=== PATIENT | male | born 1990 | race Caucasian/White ===

== ENCOUNTER 2023-10-22 22:35 | Emergency (ER) | payer SELFPAY ==
[2023-10-22 22:38] VITALS: BP 180/106
--- NOTE | 2023-10-22 23:10 | ED.GENMED ---
History of Present Illness
General
Chief Complaint: Abnormal Lab Value
Time Seen by Provider: 10/22/23 23:10
Travel History
Have you had any contact with someone who has COVID-19?: No
Do you have any symptoms of coronavirus? Fever > 100 degrees, chills, cough, shortness of breath, sore throat, loss of taste or smell, muscle aches, or headache?: No
History of Present Illness
History of Present Illness:
HPI: The patient states he had lab work drawn today through [facility] and was told it was elevated. He denies any significant symptoms. He had been on Depakote 500 mg twice daily this past April but then was switched to 1000 mg twice daily
which is what is currently taking. The outpatient Depakote level today was 157. He spoke to Dr. Judd recommended that he decreases the dose down to 750 mg twice daily. When he was on 500 mg twice daily he did have some outbursts and at 1000 mg
twice daily he feels somewhat fatigued. He tells me that he essentially came here for a 'second opinion'.
EXAM:
GENERAL: Well appearing in no distress
HEENT: Moist oral mucosa, no nystagmus
CARDIOVASCULAR: No murmurs, normal heart rate, regular rhythm, No chest wall tenderness
PULMONARY: No respiratory distress, breath sounds are clear and equal
ABDOMEN: Soft with no peritoneal signs, no tenderness
NEUROLOGIC: Excellent strength all extremities, no coordination deficits
PSYCHIATRIC: Appropriate mental status, reasonable insight and judgement
EXTREMITIES: Nontender, no edema, moves all extremities equally
SKIN: No rash, no lesions
TIME OF INITIAL ENCOUNTER: 11:15 PM
NUMBER AND COMPLEXITY OF PROBLEMS ADDRESSED AT THE ENCOUNTER
� Chronic conditions affecting care: Asperger's, bipolar, PTSD, high blood pressure, has had SVT
� Acute Exacerbation and/or Progression of Chronic Illness: This is an acute problem
� Differential Diagnosis includes: Depakote toxicity, supratherapeutic Depakote level
AMOUNT AND/OR COMPLEXITY OF DATA TO BE REVIEWED AND ANALYZED
� I performed an independent evaluation of and my interpretation is:
EKG:
CT:
X-rays:
Laboratory Studies: CBC normal, chemistries unremarkable, ammonia normal, Depakote level at 85.
Other:
� Review of other/old records: I reviewed records, the patient had a chest x-ray December of last year which was unremarkable.
� Clinical information was obtained by an independent historian: None needed
� Prescriptions/Medications Considered but not given:
� Further testing considered but not performed:
RISK OF COMPLICATIONS AND/OR MORBIDITY OR MORTALITY OF PATIENT MANAGEMENT
� Social determinants of health affecting care: Lives at home with his parents
� Discussion with other providers: None needed
� Escalation of care including admission/observation vs risk of discharge considered: Will recheck labs and reassess, currently, the patient does not have any significant symptoms but would likely decrease dosing recommendation
as outpatient. On reassessment at 1:20 AM, the patient is in no distress there is been no change in his clinical condition. We agreed to have patient start a total of 750 mg of Depakote twice daily. He states this was also the recommendation of
psychiatrist. He already has 500 mg strength�will give prescription for 250 mg strength.
Past History
Past History
ED Past Medical History: Arrthythmia, HTN, Psychiatric (ADHD, asked Buerger's, bipolar, PTSD) and Other (migraines, ADHD)
ED Past Surgical History: None
Social History
Tobacco: Non-smoker
Alcohol: Occasional
Drug: None
Personal: Other (Noncontributory)
Living: with family
Employment: Not employed
Family History
Family History: Other (Noncontributory)
Phy Exam
Physical Exam
Physical Exam:
See HPI
Course
Orders/Labs/Results
Orders:
Orders
10/22/23 23:11
0.9% Sodium Chloride 1000 ml [Nss] 1,000 ml IV BOLUS
10/22/23 23:46
Ammonia Urgent
Complete Blood Count/With Diff Urgent
Comprehensive Metabolic Panel Urgent
Valproic Acid Level [Depakane] Urgent
Abnormal Lab Results
10/22/23
23:46
Absolute Monos (auto) 0.9 H 10^3/uL
(0.1-0.6)
Monocytes % 12.0 H %
(1.7-9.3)
Glucose 109 H mg/dl
(70-99)
10/22/23 23:46
10/22/23 23:46
Vital Signs
Initial and Last Documented VS:
Initial Vital Signs
Pulse Resp BP Pulse Ox
96 20 180/106 99
10/22/23 22:38 10/22/23 22:38 10/22/23 22:38 10/22/23 22:38
Last Documented Vital Signs
Pulse Resp BP Pulse Ox
96 20 180/106 99
10/22/23 22:38 10/22/23 22:38 10/22/23 22:38 10/22/23 22:38
*Critical Care Note
Total Time (30-74mins, 75-104mins- exclusive of procedures): Not Applicable
ED Attending Note
-
Portions of this chart may have been created with voice recognition software.� Occasional wrong word or��sound alike� substitutions may have occurred due to the inherent limitations of voice recognition software.
Discharge Plan
Departure
Patient Disposition: Home (Routine Discharge)
Date of Disposition: 10/23/23
Time of Disposition: 01:23
Patient with high blood pressure during this ER visit?: Yes
Discharge Problem:
Serum sodium valproate above therapeutic range
Prescriptions:
New
divalproex [Depakote] 250 mg tablet,delayed release (DR/EC)
250 mg PO BID Qty: 60 0RF
No Action
Ziprasidone
60 mg PO HS
sertraline 50 MG tablet
50 mg PO HS
metoprolol tartrate 25 MG tablet
25 mg PO BID
Referrals:
Kwabena Palm MD [Family Provider] -
Activity Restrictions/Additional Instructions:
I agree with the other doctor that you should be on 750 mg of Depakote twice daily. Tomorrow morning start taking ONE of the 500 mg and ONE of the 250 mg and then in the evening take one of the 500 mg and one of the 250 mg. I am sending a
prescription for the 250 mg to your pharmacy. Follow-up with your psychiatrist. The Depakote level tonight is 84.6 (normal ranges 50-120). Other basic labs including ammonia level are normal.
Interventions
Interventions:
*Risk Screen - Suicide Last Done: 10/22/23 22:38
*General Assessment Last Done: 10/22/23 22:38
*Neglect/Abuse Screening Last Done: 10/22/23 22:38
*ED COVID-19 Vaccine History Last Done: 10/22/23 23:30
Discharge Date and Time
Print Language: SAMOAN
[2023-10-22] MEDS: NSS 1000 IV (23:49)
[2023-10-22 23:54] LABS: % Basophils 0.5 % (0-2); % Eosinophils 1.9 % (0-6); % Immature Granulocytes 0.3 % (0-0.5); % Lymphocytes 34.2 % (20.5-51.1); % Neutrophils 51.1 % (42.2-75.2); Absolute Eosinophils 0.1 10^3/uL (0-0.7); Absolute Lymphocytes 2.6 10^3/uL (1.2-3.4); Absolute Monocytes 0.9 10^3/uL (0.1-0.6); Absolute Neutrophils 3.8 10^3/uL (1.4-6.5); Hematocrit 43.4 % (39.0-52.0); Hemoglobin 15.2 g/dL (13.0-18.0); Mean Corpuscular Hgb 30.1 pg (27.0-31.0); Mean Corpuscular Volume 85.9 fL (80.0-94.0); Mean Platelet Volume 10.1 fL (7.4-10.4); Nucleated Red Blood Cells % 0 % (-); Platelet Count 180 10^3/uL (130-400); Red Blood Cell Count 5.05 10^6/uL (4.70-6.10); Red Cell Dist. Width 13.2 % (11.5-14.5); White Blood Cell Count 7.5 10^3/uL (4.8-10.8)
[2023-10-23 00:07] LABS: Ammonia 17 umol/L (9-30)
[2023-10-23 00:09] LABS: ALT (SGPT) 32 U/L (0-50); AST (SGOT) 23 U/L (17-59); Albumin 4.4 g/dl (3.5-5.0); Alkaline Phosphatase 71 U/L (38-126); Blood Urea Nitrogen 13 mg/dl (9-20); Calcium 9.9 mg/dl (8.4-10.2); Carbon Dioxide 25 mmol/L (22-30); Chloride 106 mmol/L (98-107); Glucose 109 mg/dl (70-99); Potassium 3.7 mmol/L (3.5-5.1); Sodium 140 mmol/L (135-145); Total Bilirubin 0.3 mg/dl (0.2-1.3); Total Protein 6.6 g/dl (6.3-8.2); eGFR > 60.00
[2023-10-23 00:12] LABS: Depakane 84.6 ug/ml (50.0-120.0)
== END 2023-10-23 01:37 | disposition home or self-care (01) ==
LOC: EMR 22:35
PROVIDERS: EMERGENCY PHYSICIAN Emergency Medicine; FAMILY PHYSICIAN Family Medicine
DX: R79.89 Other specified abnormal findings of blood chemistry (principal); R53.83 Other fatigue; F84.5 Asperger's syndrome; F31.9 Bipolar disorder, unspecified; I10 Essential (primary) hypertension; F43.10 Post-traumatic stress disorder, unspecified; F90.9 Attention-deficit hyperactivity disorder, unspecified type; G43.909 Migraine, unspecified, not intractable, without status migrainosus; Z88.8 Allergy status to other drugs, medicaments and biological substances; Z91.048 Other nonmedicinal substance allergy status
CPT/HCPCS: 99284; 96360; 80053; 80164; 82140; 85025

== ENCOUNTER 2023-12-12 19:12 | Emergency (ER) | payer BC, SELFPAY ==
[2023-12-12 19:17] VITALS: BP 173/107
--- NOTE | 2023-12-12 19:44 | EDRN ---
Pt then took a nap this afternoon and awoke with severe pain L shoulder and arm. Pt states that he can not move neck side to side and can not lift arm without pain. Slight swelling at site and no warmth or redness.
[2023-12-12 20:00] VITALS: BP 140/97
[2023-12-12] MEDS: TYLENOL 1000 MG PO (20:37)
[2023-12-12] MEDS: MOTRIN 800 MG PO (20:37)
[2023-12-12 20:38] VITALS: BMI 32.6
--- NOTE | 2023-12-12 22:24 | ED.GENMED ---
History of Present Illness
General
Chief Complaint: Musculo-Skeletal Complaint
Source: patient
Exam Limitations: none
Time Seen by Provider: 12/12/23 19:28
Nursing documentation reviewed up to this point in time: agreed with
History of Present Illness
History of Present Illness:
33-year-old male with past medical history of hypertension presenting to the emergency department today with concerns of discomfort to his left side of his neck made worse with movement seem to correlate with getting a tetanus shot yesterday.
Denies any chest pain shortness of breath or additional concerns.
Past History
Past History
ED Past Medical History: Arrthythmia, HTN, Psychiatric (ADHD, asked Buerger's, bipolar, PTSD) and Other (migraines, ADHD)
ED Past Surgical History: None
Social History
Tobacco: Non-smoker
Alcohol: Occasional
Drug: None
Personal: Other (Noncontributory)
Living: with family
Employment: Not employed
Family History
Family History: Other (Noncontributory)
Review of Systems
Review of Systems
Allergies reviewed?: Yes
All Other Systems: ROS reviewed and negative except as documented in HPI and ROS
Phy Exam
Physical Exam
Physical Exam:
GENERAL: Alert , in no apparent distress
EYE: pupils equal and reactive
NECK: Supple, no significant adenopathy.
ENT: o/p clr, mmm.
CARDIAC: Regular rate and rhythm .
LUNGS: Clear breath sounds bilaterally, no acute respiratory distress, no wheezes/rales/rhonchi
ABDOMEN: Soft, without focal tenderness, no r/g, no cvat
NEUROLOGICAL: Alert and oriented, no focal neuro deficits
SKIN: Warm and dry, skin intact.
MUSCULOSKELETAL: No overlying skin changes but does have some discomfort to the left lateral neck with rotation of the head. No visible changes. No edema, well perfused.
PSYCH: Normal and appropriate interaction.
Course
Orders/Labs/Results
Orders:
Orders
12/12/23 20:31
EKG [Electrocardiogram (*1)] Urgent
Reason for Study: Chest Pain
EKG- Treatment ONCE
Acetaminophen [Tylenol] 1,000 mg PO NOW STA
Ibuprofen [Motrin] 800 mg PO NOW STA
CR Shoulder, Trauma - Left Urgent
Comment:
Reason For Exam: shoulder pain
12/12/23 21:54
Diazepam [Valium] 5 mg PO NOW STA
Vital Signs
Initial and Last Documented VS:
Initial Vital Signs
Temp Pulse Resp BP Pulse Ox
98.1 F 109 20 173/107 96
12/12/23 19:17 12/12/23 19:17 12/12/23 19:17 12/12/23 19:17 12/12/23 19:17
Last Documented Vital Signs
Temp Pulse Resp BP Pulse Ox
98.1 F 80 16 124/84 97
12/12/23 19:17 12/12/23 22:40 12/12/23 22:40 12/12/23 22:40 12/12/23 22:40
MDM/Problems Addressed
MDM/Problems Addressed:
33-year-old male presenting to the emergency department today with concerns of left-sided neck discomfort. Pain made worse with movement no fevers no chest pain or shortness of breath. Did get a tetanus shot yesterday at the left arm. On arrival
mildly tachycardic but this improved without specific treatment heart rate normal throughout the remainder of ER stay EKG normal x-ray of the shoulder without acute abnormalities. Patient with likely muscle strain advised for muscle relaxer and
Motrin Tylenol at home. Return precautions given.
*Critical Care Note
Total Time (30-74mins, 75-104mins- exclusive of procedures): Not Applicable
ED Attending Note
-
Portions of this chart may have been created with voice recognition software.� Occasional wrong word or��sound alike� substitutions may have occurred due to the inherent limitations of voice recognition software.
Discharge Plan
Departure
Patient Disposition: Home (Routine Discharge)
Date of Disposition: 12/12/23
Time of Disposition: 22:29
Patient with high blood pressure during this ER visit?: No
Condition: Good
Covid-19: Not Applicable
Discharge Problem:
Neck strain
Instructions: Muscle Strain (DC)
Prescriptions:
New
cyclobenzaprine 10 mg tablet
10 mg PO BID PRN (Reason: muscle spasm) Qty: 7 0RF
No Action
Ziprasidone
60 mg PO HS
sertraline 50 MG tablet
50 mg PO HS
metoprolol tartrate 25 MG tablet
25 mg PO BID
divalproex [Depakote] 250 mg tablet,delayed release (DR/EC)
250 mg PO BID Qty: 60 0RF
Referrals:
Kwabena Palm MD [Family Provider] -
Activity Restrictions/Additional Instructions:
You came to the emergency department today with concerns of a neck strain. Please take the prescribed medication as needed. This can cause drowsiness. Please do not drive or operate machinery while taking this medication. Return to the emergency
department for any worsening, new or concerning symptoms.
Interventions
Interventions:
*Risk Screen - Suicide Last Done: 12/12/23 19:14
*General Assessment Last Done: 12/12/23 19:14
*Neglect/Abuse Screening Last Done: 12/12/23 19:14
ED- Fall Risk Assessment Last Done: 12/12/23 19:30
*ED COVID-19 Vaccine History Last Done: 12/12/23 19:30
*Nursing Disposition Last Done: 12/12/23 22:40
ED-Musculoskeletal Assessment Last Done: 12/12/23 19:30
Discharge Date and Time
Discharge Date/Time: 12/12/23 22:40
Print Language: LATVIAN
[2023-12-12 22:40] VITALS: BP 124/84
== END 2023-12-12 22:40 | disposition home or self-care (01) ==
LOC: EMR 19:12
PROVIDERS: EMERGENCY PHYSICIAN Emergency Medicine; FAMILY PHYSICIAN Family Medicine
DX: S16.1XXA Strain of muscle, fascia and tendon at neck level, initial encounter (principal); X58.XXXA Exposure to other specified factors, initial encounter; I10 Essential (primary) hypertension; F90.9 Attention-deficit hyperactivity disorder, unspecified type; F31.9 Bipolar disorder, unspecified; F43.10 Post-traumatic stress disorder, unspecified
CPT/HCPCS: 99283; 73030; 93005

== ENCOUNTER 2023-12-21 10:28 | Emergency (ER) | payer BC, SELFPAY ==
[2023-12-21 10:31] VITALS: BP 139/100
--- NOTE | 2023-12-21 11:13 | ED.GENMED ---
History of Present Illness
General
Chief Complaint: Head Injury
Source: patient
Exam Limitations: none
Time Seen by Provider: 12/21/23 10:48
Nursing documentation reviewed up to this point in time: agreed with
History of Present Illness
History of Present Illness:
33-year-old male presents to the emergency department after hitting his head on the door and falling at [facility]. He also felt his heart racing.
Past History
Past History
ED Past Medical History: Arrthythmia, HTN, Psychiatric (ADHD, asked Buerger's, bipolar, PTSD) and Other (migraines, ADHD)
ED Past Surgical History: None
Social History
Tobacco: Non-smoker
Alcohol: Occasional
Drug: None
Personal: Other (Noncontributory)
Living: with family
Employment: Not employed
Family History
Family History: Other (Noncontributory)
Review of Systems
Review of Systems
Allergies reviewed?: Yes
All Other Systems: Not applicable
Constitutional: Reports no symptoms
EENT: Reports no symptoms
Respiratory: Reports no symptoms
Cardiac: Reports palpitations
ABD/GI: Reports no symptoms
: Reports no symptoms
Musculoskeletal: Reports no symptoms
Skin: Reports no symptoms
Neurological: Reports no symptoms
Endocrine: Reports no symptoms
Hematologic/Lymphatic: Reports no symptoms
Psychiatric: Reports no symptoms
Phy Exam
Physical Exam
Physical Exam:
Physical Exam
General: no apparent distress, not acutely ill
Neck: supple. no meningeal signs. normal posterior pharynx
Heart: s1/s2 regular rate and rhythm, no murmur. equal radial
pulses. Forehead swelling
HEENT: Pupils equal round reactive to light, EOMI
Lungs: no acute respiratory distress. clear bilaterally
Abdomen: normal bowel sounds. not tender. no CVAT
Neuro: alert and oriented. no focal neurological deficits cranial nerves II through XII intact
Skin: no rash
Psychiatric: well kept. interactive and cooperative
Extremities: no edema. no calf tenderness. negative homans. good distal pulses
Course
Orders/Labs/Results
Orders:
Orders
12/21/23 11:01
Electrocardiogram (*1) Stat
Reason for Study: Palpitations
Electrocardiogram (*1) Urgent
CT Head W/o Iv Contrast Urgent
Comment:
Reason For Exam: fell, hit head on door
EKG- Treatment ONCE
12/21/23 11:38
Crisis Consult Urgent
Reason for Consult: anxious
Vital Signs
Initial and Last Documented VS:
Initial Vital Signs
Temp Pulse Resp BP Pulse Ox
99.1 F 112 20 139/100 96
12/21/23 10:31 12/21/23 10:31 12/21/23 10:31 12/21/23 10:31 12/21/23 10:31
Last Documented Vital Signs
Temp Pulse Resp BP Pulse Ox
99.1 F 77 18 124/97 97
12/21/23 10:31 12/21/23 12:00 12/21/23 12:00 12/21/23 12:00 12/21/23 12:00
MDM/Problems Addressed
Differential Diagnosis Includes:
Intracranial hemorrhage, SVT
MDM/Problems Addressed:
33-year-old male with palpitations and forehead hematoma. No intracranial hemorrhage
Chronic conditions affecting care: Arrhythmia
*Radiology
Radiology exam reviewed: preliminary read by ED provider (ct head nad)
*Pulse Oximetry
Patient hypoxic: no
*EKG
Interpreted by ED Provider?: Yes
EKG Intrepretation Date: 12/21/23
EKG Intrepretation Time: 11:12
Interpretation: abnormal
Comparison EKG: no comparison EKG present
Heart Rate: 83
Rate: normal
Rhythm: sinus
Wasta: normal axis
Interval: normal interval
QRS Pattern: normal QRS
Ischemia: non-specific ST changes
*Or[employer] Interpretation
Rate: Or[employer]ctor- N/A
*Critical Care Note
Total Time (30-74mins, 75-104mins- exclusive of procedures): Not Applicable
Patient Management
Social determinants of health affecting care: Living situation
Escalation/DeEscalation of care consider admission/obs:
Admit not indicated
ED Attending Note
-
Portions of this chart may have been created with voice recognition software.� Occasional wrong word or��sound alike� substitutions may have occurred due to the inherent limitations of voice recognition software.
Discharge Plan
Departure
Patient Disposition: Home (Routine Discharge)
Date of Disposition: 12/21/23
Time of Disposition: 12:32
Patient with high blood pressure during this ER visit?: Yes
Condition: Good
Discharge Problem:
Traumatic hematoma of forehead, Heart palpitations
Instructions: Head Injury in Adults (DC)
Prescriptions:
No Action
Ziprasidone
60 mg PO HS
sertraline 50 MG tablet
50 mg PO HS
metoprolol tartrate 25 MG tablet
25 mg PO BID
divalproex [Depakote] 250 mg tablet,delayed release (DR/EC)
250 mg PO BID Qty: 60 0RF
cyclobenzaprine 10 mg tablet
10 mg PO BID PRN (Reason: muscle spasm) Qty: 7 0RF
Referrals:
Kwabena Alcantar DO [Family Provider] - Call in 1-3 days for appt
Interventions
Interventions:
*Risk Screen - Suicide Last Done: 12/21/23 11:53
*Neglect/Abuse Screening Last Done: 12/21/23 11:53
ED- Neurological Assessment Last Done: 12/21/23 11:53
ED-Psychological Assessment Last Done: 12/21/23 11:53
ED-Skin Assessment Last Done: 12/21/23 11:53
Discharge Date and Time
Print Language: MAORI
[2023-12-21 11:39] VITALS: BP 139/94
[2023-12-21 12:00] VITALS: BP 124/97
== END 2023-12-21 13:11 | disposition home or self-care (01) ==
LOC: EMR 10:28
PROVIDERS: EMERGENCY PHYSICIAN Emergency Medicine; FAMILY PHYSICIAN Family Medicine
DX: S00.83XA Contusion of other part of head, initial encounter (principal); R00.2 Palpitations; W18.09XA Striking against other object with subsequent fall, initial encounter; Y92.240 Courthouse as the place of occurrence of the external cause; R03.0 Elevated blood-pressure reading, without diagnosis of hypertension; I10 Essential (primary) hypertension; F43.10 Post-traumatic stress disorder, unspecified; F90.9 Attention-deficit hyperactivity disorder, unspecified type; F31.9 Bipolar disorder, unspecified; G43.909 Migraine, unspecified, not intractable, without status migrainosus; K21.9 Gastro-esophageal reflux disease without esophagitis; F84.5 Asperger's syndrome
CPT/HCPCS: 99284; 70450; 93005

== ENCOUNTER 2024-02-26 23:36 | Emergency (ER) | payer BC, SELFPAY ==
[2024-02-26 23:37] VITALS: BP 198/130
[2024-02-27 00:50] VITALS: BP 136/93; BMI 32.5
--- NOTE | 2024-02-27 02:17 | ED.GENMED ---
History of Present Illness
<MARIA GUADALUPE Mejía - Last Filed: 02/27/24 03:05>
General
Chief Complaint: Psychiatric Problem
Source: patient
Exam Limitations: none
Time Seen by Provider: 02/27/24 02:17
Nursing documentation reviewed up to this point in time: agreed with
History of Present Illness
History of Present Illness:
Patient is a 33yo M w/ PMH of bipolar disorder, SVT, and HTN presents to the ED for crisis evaluation. Pt was evaluated by psych and has calmed down since arrival. He states he has been having increased stress the past few weeks. Brick he got stress
under control Wednesday but today it became too overwhelmed. States he was aware he was having verbal outburst but was unable to control them. He reports associated tension in L shoulder w/ stress. Reports following w/ PCP in [place]. Denies GALINDO,
dizziness, N/V/C/D, changes in urination, and other body pain. Reports compliance w/ medications.
Past History
<MARIA GUADALUPE Mejía - Last Filed: 02/27/24 03:05>
Past History
ED Past Medical History: Arrthythmia, HTN, Psychiatric (ADHD, asked Buerger's, bipolar, PTSD) and Other (migraines, ADHD)
ED Past Surgical History: None
Social History
Tobacco: Non-smoker
Alcohol: Occasional
Drug: None
Personal: Other (Noncontributory)
Living: with family
Employment: Not employed
Family History
Family History: Other (Noncontributory)
Review of Systems
<MARIA GUADALUPE Mejía - Last Filed: 02/27/24 03:05>
Review of Systems
Constitutional: Denies fever, fatigue or chills
Respiratory: Denies cough or trouble breathing
Cardiac: Denies chest pain or palpitations
ABD/GI: Denies abdominal pain, nausea, vomiting, diarrhea or constipated
: Denies dysuria
Musculoskeletal: Reports joint pain; Denies muscle pain, neck pain or back pain
Skin: Denies itching or rash
Neurological: Denies dizzy or headache
Psychiatric: Reports anxiety
Phy Exam
<MARIA GUADALUPE Mejía - Last Filed: 02/27/24 03:05>
General Physical Exam
General Presentation: no apparent distress
General age: appears stated age
General Habitus: normal
General Mental: alert
ENT Exam
ENT Exam: normocephalic
Cardiovascular Exam
Cardiovascular Exam: regular rate/rhythm, no edema, no gallop and no murmur
Pulmonary Exam
Pulmonary Exam: lungs clear, no respiratory distress, no rales, no crackles, no rhonchi, no wheezing and no cough
Neurological Exam
Neurological Exam: alert, oriented x3 and speech normal
Course
<Jessica Briseno [facility] - Last Filed: 02/27/24 03:05>
Orders/Labs/Results
Orders:
Orders
02/27/24 00:57
Crisis Consult Urgent
Reason for Consult: pt feeling stressed and overwhelmed
Vital Signs
Initial and Last Documented VS:
Initial Vital Signs
Temp Pulse Resp BP Pulse Ox
98 F 82 26 198/130 100
02/26/24 23:37 02/26/24 23:37 02/26/24 23:37 02/26/24 23:37 02/26/24 23:37
Last Documented Vital Signs
Temp Pulse Resp BP Pulse Ox
98 F 84 14 136/88 98
02/26/24 23:37 02/27/24 02:47 02/27/24 02:47 02/27/24 02:47 02/27/24 02:47
<Greta Glaser DO - Last Filed: 02/27/24 02:36>
Orders/Labs/Results
Orders:
Orders
02/27/24 00:57
Crisis Consult Urgent
Reason for Consult: pt feeling stressed and overwhelmed
Vital Signs
Initial and Last Documented VS:
Initial Vital Signs
Temp Pulse Resp BP Pulse Ox
98 F 82 26 198/130 100
02/26/24 23:37 02/26/24 23:37 02/26/24 23:37 02/26/24 23:37 02/26/24 23:37
Last Documented Vital Signs
Temp Pulse Resp BP Pulse Ox
98 F 84 14 136/88 98
02/26/24 23:37 02/27/24 02:47 02/27/24 02:47 02/27/24 02:47 02/27/24 02:47
<MARIA GUADALUPE Mejía - Last Filed: 02/27/24 03:05>
*Critical Care Note
Total Time (30-74mins, 75-104mins- exclusive of procedures): Not Applicable
ED Attending Note
<MARIA GUADALUPE Mejía - Last Filed: 02/27/24 03:05>
-
Portions of this chart may have been created with voice recognition software.� Occasional wrong word or��sound alike� substitutions may have occurred due to the inherent limitations of voice recognition software.
<Greta Glaser DO - Last Filed: 02/27/24 02:36>
ED Attending Note
Patient seen and examined by attending physician: Yes
I performed the substantive portion of visit, reviewed & personally made and approve the management plan that is documented in note by myself or DAVID.: Yes
ED Attending Note:
This is a 33-year-old gentleman who has history of PTSD, bipolar disorder, mild autism who admits to significant stress, anxiety, worry over the past few weeks, progressive over the past 2 weeks and has been feeling somewhat overwhelmed but
adamantly denies suicidal thoughts or plan. He does follow monthly with a psychiatrist and follows twice weekly with a therapist/counselor.
He presents tonight due to feeling overwhelmed, anxious and has been evaluated by [facility] with plan to initiate intensive outpatient program.
Currently feeling improved after interview with [facility] crisis counselor.
He continues to deny suicidal thoughts or plan.
He denies alcohol nor drug use.
He remains goal oriented, working full-time, has supportive family.
Patient is bright and alert, oriented x 3. Maintains eye contact.
Moderately elevated blood pressure noted initially, has improved/normalized upon recheck. He remains afebrile.
Respirations are easy and nonlabored.
Awake and alert, oriented x 3. No focal neurodeficits. Gait is renee and steady.
At this point no indication for laboratory studies.
He has been provided with contact information to initiate intensive outpatient program.
Encouraged him to follow-up with his primary psychiatrist as well as his therapist.
Return precautions discussed.
Discharge Plan
Departure
Patient Disposition: Home (Routine Discharge)
Date of Disposition: 02/27/24
Time of Disposition: 02:30
Patient with high blood pressure during this ER visit?: No
Condition: Good
Discharge Problem:
Generalized anxiety disorder
Instructions: Generalized Anxiety Disorder (DC)
Prescriptions:
No Action
divalproex [Depakote] 500 mg Tablet,Delayed Release (Dr/Ec)
1,000 mg PO QHS
allopurinol 300 mg Tablet
300 mg PO DAILY
propranolol 20 mg Tablet
20 mg PO BID
cholecalciferol (vitamin D3) [Vitamin D3] 25 mcg (1,000 unit) Capsule
25 mcg PO BID
aripiprazole [Abilify] 20 mg Tablet
25 mg PO HS
gabapentin 100 mg Tablet
200 mg PO TID
divalproex [Depakote] 250 mg tablet,delayed release (DR/EC)
750 mg PO QDAY
Rx Instructions:
morning
Referrals:
UNKNOWN - PT NOT,INTERVIEWE [Family Provider] -
Activity Restrictions/Additional Instructions:
Follow-up with outpatient services as suggested/recommended by [facility].
Continue to follow-up with your psychiatrist as well as your therapist.
Interventions
Interventions:
*Risk Screen - Suicide Last Done: 02/26/24 23:38
*General Assessment Last Done: 02/27/24 00:50
*Neglect/Abuse Screening Last Done: 02/27/24 00:50
ED- Fall Risk Assessment Last Done: 02/27/24 02:47
*ED COVID-19 Vaccine History Last Done: 02/27/24 00:50
*Nursing Disposition Last Done: 02/27/24 02:47
ED-Psychological Assessment Last Done: 02/27/24 00:52
Discharge Date and Time
Discharge Date/Time: 02/27/24 02:48
Print Language: POLISH
[2024-02-27 02:47] VITALS: BP 136/88
== END 2024-02-27 02:48 | disposition home or self-care (01) ==
LOC: EMR 23:36
PROVIDERS: EMERGENCY PHYSICIAN Emergency Medicine
DX: F41.1 Generalized anxiety disorder (principal); I10 Essential (primary) hypertension
CPT/HCPCS: 99283

== ENCOUNTER 2024-07-03 07:37 | Emergency (ER) | payer OTHER, SELFPAY ==
[2024-07-03 07:43] VITALS: BP 152/104
[2024-07-03 08:12] VITALS: BMI 35.6
[2024-07-03 08:16] VITALS: BP 145/98
--- NOTE | 2024-07-03 08:26 | ED.GENMED ---
History of Present Illness
General
Chief Complaint: Chest Pain
Time Seen by Provider: 07/03/24 08:07
History of Present Illness
History of Present Illness:
33-year-old male with history of anxiety presenting to the emergency department for left-sided chest pain. Patient reports symptoms started hour prior to arrival when he was yelling. He reports that he started to feel very anxious and then started
to have chest pain. Describes the chest pain as a tearing sensation. Notes that he has had this pain in the past, however feels worse than usual. He took his medications prior to arrival and symptoms have improved, however are still present.
Denies any difficulty breathing. Denies abdominal pain or GI symptoms. Denies history of blood clot, recent travel, recent surgery. Denies fever or recent illness. Denies additional acute medical complaints
Past History
Past History
ED Past Medical History: Arrthythmia, HTN, Psychiatric (ADHD, asked Buerger's, bipolar, PTSD) and Other (migraines, ADHD)
ED Past Surgical History: None
Social History
Tobacco: Non-smoker
Alcohol: Occasional
Drug: None
Personal: Other (Noncontributory)
Living: with family
Employment: Not employed
Family History
Family History: Other (Noncontributory)
Phy Exam
Physical Exam
Physical Exam:
General: Well-appearing, no clinical signs of dehydration, nontoxic and in no acute distress
HEENT: protecting airway
Neck: appears supple
CV: Normal heart rate, regular rhythm
Resp: No accessory muscle use, no increased work of breathing, lungs clear to auscultation bilaterally
Abd: Soft and non-distended, no tenderness to palpation
Extremities: No deformities, no swelling, no erythema
Neuro: alert, no focal neurologic deficit
: deferred
Rectal: deferred
Psych: Normal affect
Skin: Intact
Scores
Heart Score for Chest Pain Patients
STEMI patient?: No
History: Slightly or Non-Suspicious
ECG: Normal
Age: </= 45 years
Risk Factors: No Risk Factors
Troponin: </= Normal Limit
Heart Score for Chest Pain Patients: 0
Heart Score Risk: 2.5% MACE over next 6 weeks
Course
Orders/Labs/Results
Orders:
Orders
07/03/24 07:38
Electrocardiogram (*1) Urgent
Reason for Study: Chest Pain
EKG- Treatment ONCE
07/03/24 08:25
Complete Blood Count/With Diff Urgent
Comprehensive Metabolic Panel Urgent
Troponin I Urgent
Abnormal Lab Results
07/03/24
08:25
MCHC 32.9 L g/dL
(33.0-37.0)
Abs Immat Gran (auto) 0.1 H 10^3/uL
(0-0.05)
Absolute Monos (auto) 1.2 H 10^3/uL
(0.1-0.6)
Monocytes % 12.4 H %
(1.7-9.3)
Glucose 101 H mg/dl
(70-99)
07/03/24 08:25
07/03/24 08:25
Vital Signs
Initial and Last Documented VS:
Initial Vital Signs
Temp Pulse Resp BP Pulse Ox
97.8 F 97 16 152/104 98
07/03/24 07:43 07/03/24 07:43 07/03/24 07:43 07/03/24 07:43 07/03/24 07:43
Last Documented Vital Signs
Temp Pulse Resp BP Pulse Ox
97.8 F 69 18 119/80 96
07/03/24 07:43 07/03/24 09:00 07/03/24 09:00 07/03/24 09:00 07/03/24 09:00
MDM/Problems Addressed
MDM/Problems Addressed:
33-year-old male with history of anxiety presenting for left-sided chest pain after having an anxiety attack. Vital signs are significant for mild hypertension.
On exam patient is resting comfortably, no acute distress or discomfort. Notes that his symptoms are improving after taking his medications. EKG obtained on arrival, no acute ischemia. Patient without significant coronary risk factors without
significant concern for ACS. Patient is PERC negative without concern for PE. Do suspect symptoms secondary to known anxiety and panic. Patient has been seen in the hospital for similar symptoms in the past. Will screen with laboratory analysis
including troponin.
09:20 - Labs are unremarkable, troponin within normal limits. Patient low risk by heart score. Feel stable for discharge. Return precautions discussed with patient verbalized understanding
*EKG
Interpreted by ED Provider?: Yes
EKG Intrepretation Date: 07/03/24
EKG Intrepretation Time: 08:33
Interpretation: normal
Comparison EKG: no changes ()
Heart Rate: 86
Rate: normal
Rhythm: sinus
[place]: normal axis
Interval: normal interval
QRS Pattern: normal QRS
Ischemia: no ischemia
*Critical Care Note
Total Time (30-74mins, 75-104mins- exclusive of procedures): Not Applicable
ED Attending Note
-
Portions of this chart may have been created with voice recognition software.� Occasional wrong word or��sound alike� substitutions may have occurred due to the inherent limitations of voice recognition software.
Discharge Plan
Departure
Patient Disposition: Home (Routine Discharge)
Date of Disposition: 07/03/24
Time of Disposition: 09:26
Patient with high blood pressure during this ER visit?: Yes
Condition: Good
Discharge Problem:
Chest pain
Instructions: Chest Pain That Is Not Caused by the Heart (DC), BLOOD PRESSURE
Prescriptions:
No Action
divalproex [Depakote] 500 mg Tablet,Delayed Release (Dr/Ec)
1,000 mg PO QHS
allopurinol 300 mg Tablet
300 mg PO DAILY
propranolol 20 mg Tablet
20 mg PO BID
cholecalciferol (vitamin D3) [Vitamin D3] 25 mcg (1,000 unit) Capsule
25 mcg PO BID
aripiprazole [Abilify] 20 mg Tablet
25 mg PO HS
gabapentin 100 mg Tablet
200 mg PO TID
divalproex [Depakote] 250 mg tablet,delayed release (DR/EC)
750 mg PO QDAY
Rx Instructions:
morning
Referrals:
DONIS NUNEZ PA [Family Provider] -
Activity Restrictions/Additional Instructions:
You were seen in the emergency department for chest pain
You were found to have normal blood work and EKG, without present concern for a heart attack.
Please follow-up closely with your primary care physician.
Return to the emergency department for any worsening of your symptoms, or any development of chest pain, difficulty breathing, abdominal pain with persistent vomiting and inability to tolerate food or liquid by mouth (concern for dehydration),
weakness, headache or confusion, fever greater than 100.4, or any additional symptoms that are concerning to you.
Thank you for choosing [facility].
Interventions
Interventions:
*Risk Screen - Suicide Last Done: 07/03/24 07:43
*General Assessment Last Done: 07/03/24 08:17
*Neglect/Abuse Screening Last Done: 07/03/24 07:43
*ED COVID-19 Vaccine History Last Done: 07/03/24 08:17
ED- Cardiac Assessment Last Done: 07/03/24 08:17
Discharge Date and Time
Print Language: MOROCCAN
[2024-07-03 08:41] LABS: % Basophils 0.7 % (0-2); % Immature Granulocytes 0.5 % (0-0.5); % Lymphocytes 23.3 % (20.5-51.1); % Monocytes 12.4 % (1.7-9.3); % Neutrophils 61.1 % (42.2-75.2); Absolute Basophils 0.1 10^3/uL (0-0.2); Absolute Eosinophils 0.2 10^3/uL (0-0.7); Absolute Immature Granulocytes 0.1 10^3/uL (0-0.05); Absolute Lymphocytes 2.2 10^3/uL (1.2-3.4); Absolute Monocytes 1.2 10^3/uL (0.1-0.6); Absolute Neutrophils 5.7 10^3/uL (1.4-6.5); Hematocrit 44.7 % (39.0-52.0); Hemoglobin 14.7 g/dL (13.0-18.0); Mean Corp Hgb Conc. 32.9 g/dL (33.0-37.0); Mean Corpuscular Hgb 29.5 pg (27.0-31.0); Mean Corpuscular Volume 89.6 fL (80.0-94.0); Mean Platelet Volume 10.1 fL (7.4-10.4); Nucleated Red Blood Cells % 0 % (-); Platelet Count 213 10^3/uL (130-400); Red Blood Cell Count 4.99 10^6/uL (4.70-6.10); Red Cell Dist. Width 13.1 % (11.5-14.5); White Blood Cell Count 9.4 10^3/uL (4.8-10.8)
[2024-07-03 08:48] LABS: ALT (SGPT) 23 U/L (0-50); AST (SGOT) 21 U/L (17-59); Albumin 4.5 g/dl (3.5-5.0); Alkaline Phosphatase 53 U/L (38-126); Blood Urea Nitrogen 13 mg/dl (9-20); Calcium 9.8 mg/dl (8.4-10.2); Carbon Dioxide 23 mmol/L (22-30); Chloride 103 mmol/L (98-107); Estimated Creatinine Clearance > 125 ml/min; Glucose 101 mg/dl (70-99); Potassium 4.7 mmol/L (3.5-5.1); Sodium 138 mmol/L (135-145); Total Bilirubin 0.4 mg/dl (0.2-1.3); Total Protein 6.8 g/dl (6.3-8.2); eGFR > 60.00
[2024-07-03 09:00] VITALS: BP 119/80
[2024-07-03 09:00] LABS: Troponin I 0.013 ng/ml
[2024-07-03 10:00] VITALS: BP 129/89
== END 2024-07-03 10:30 | disposition home or self-care (01) ==
LOC: EMR 07:37
PROVIDERS: EMERGENCY PHYSICIAN Student in an Organized Health Care Education/Training Program; FAMILY PHYSICIAN Physician Assistant
DX: R07.89 Other chest pain (principal); F41.9 Anxiety disorder, unspecified; I10 Essential (primary) hypertension
CPT/HCPCS: 80053; 84484; 85025; 93005; 99284

== ENCOUNTER 2025-04-07 23:49 | Emergency (ER) | payer OTHER, SELFPAY ==
[2025-04-08 00:04] VITALS: BP 134/95
[2025-04-08 02:11] VITALS: BMI 33.9
[2025-04-08 02:16] VITALS: BP 122/85
[2025-04-08] MEDS: NSS 1000 IV (03:10)
[2025-04-08 03:28] LABS: Hematocrit 45.6 % (39.0-52.0); Hemoglobin 15.2 g/dL (13.0-18.0); Mean Corp Hgb Conc. 33.3 g/dL (33.0-37.0); Mean Corpuscular Volume 87.4 fL (80.0-94.0); Nucleated Red Blood Cells % 0 % (-); Platelet Count 100 10^3/uL (130-400); Red Cell Dist. Width 13.1 % (11.5-14.5)
[2025-04-08 03:36] LABS: COVID-19 Antigen Negative (Negative)
[2025-04-08 03:46] LABS: ALT (SGPT) 65 U/L (0-50); AST (SGOT) 65 U/L (17-59); Albumin 5.0 g/dl (3.5-5.0); Alkaline Phosphatase 58 U/L (38-126); Blood Urea Nitrogen 12 mg/dl (9-20); Calcium 9.2 mg/dl (8.4-10.2); Carbon Dioxide 28 mmol/L (22-30); Chloride 98 mmol/L (98-107); Estimated Creatinine Clearance > 125 ml/min; Glucose 93 mg/dl (70-99); Potassium 4.6 mmol/L (3.5-5.1); Sodium 135 mmol/L (135-145); Total Protein 7.9 g/dl (6.3-8.2); eGFR > 60.00
[2025-04-08 04:45] LABS: Urine Character Clear (Clear)
--- NOTE | 2025-04-08 04:52 | ED.GENMED ---
History of Present Illness
General
Chief Complaint: Headache
Source: patient
Exam Limitations: none
Time Seen by Provider: 04/08/25 02:17
Nursing documentation reviewed up to this point in time: agreed with
History of Present Illness
History of Present Illness:
Note:
CHIEF COMPLAINT(S)
Sinus pressure, chills, night sweats, and cough.
HISTORY OF PRESENT ILLNESS
The patient is a 34-year-old male who presented with symptoms that began on or about . He describes experiencing new onset sinus pressure and chills, stating, 'the whole air around me just felt chilly,' though others did not feel the same.
On night into Wednesday morning, he awoke around 2 a.m. drenched in sweat, soaking his pajamas and T-shirt. He has not documented any fevers but has experienced these chills and sinus pains. The patient started taking acetaminophen on
to see if it could alleviate his symptoms, which included difficulties sleeping due to night sweats. On Wednesday into Wednesday, he developed a cough. His symptoms have persisted for more than four days. The patient reported not measuring his
temperature. He feels better after sweating but expressed concern about the ongoing symptoms.
PAST MEDICAL AND SURIGICAL HISTORY
The patient has a medical history of hypertension, supraventricular tachycardia (SVT), gastroesophageal reflux disease (GERD), and a history of gout. He takes medications for these conditions.
IMMUNIZATION HISTORY
The patient received a flu shot and a COVID-19 vaccination in January of this year.
SOCIAL HISTORY
The patient does not smoke but consumes alcohol. He reported having three alcoholic drinks in [place] from Wednesday through Wednesday. He does not work around chemicals or other known exposures.
PHYSICAL EXAM
General: Alert, no acute distress.
Skin: Warm, dry.
Head: Normocephalic, atraumatic.
Neck: Supple, trachea midline.
Eye Ears, nose, mouth and throat: Oral mucosa moist.
Cardiovascular: Normal peripheral perfusion, No edema.
Respiratory: Lung sounds described as perfect during auscultation.
Gastrointestinal: Abdomen nondistended
Back: Normal range of motion, Normal alignment.
Musculoskeletal: Normal ROM, normal strength.
Neurological: Alert and oriented to person, place, time, and situation, No focal neurological deficit observed.
Psychiatric: Cooperative, appropriate mood & affect.
PLAN
1. Perform a computed tomography (CT) scan of the head to evaluate for sinus issues.
2. Conduct blood work to assess the patients overall condition.
3. Administer intravenous fluids due to potential dehydration from night sweats.
4. Obtain a urine sample for analysis.
5. Consider treatment for sinusitis based on symptoms and diagnostic findings.
DIFFERENTIAL DIAGNOSIS
The Differential Diagnosis includes, in no particular order and is not limited to:
1. Acute sinusitis
2. Upper respiratory tract infection
3. Influenza
4. COVID-19
5. Non-allergic rhinitis
6. Allergic rhinitis
7. Viral pharyngitis
8. Bacterial sinusitis
9. Dehydration
10. Anxiety-induced hyperhidrosis
Disposition:
SUMMARY OF ENCOUNTER
The patient, a 34-year-old male, presented with sinus pressure and headache. A computed tomography (CT) scan was conducted to evaluate sinus issues but returned negative for any acute abnormalities. His symptoms resolved during the emergency
department visit. Dexamethasone (Decadron) was administered to address inflammation. Patient agreed with the management plan.
DISPOSITION
Discharge
ASSESSMENT
Resolved sinus pressure and headache. Negative CT scan for acute sinus issues.
EMERGENCY TREATMENTS ADMINISTERED
Dexamethasone administered.
PLAN
Discharge patient in improved condition.
INDEPENDENT REVIEW OF LABS AND INTERPRETATION OF TESTS
My independent interpretation of the CT scan is negative for acute sinus concerns.
PATIENT EDUCATION AND COUNSELING
Patient was informed about the lack of acute findings on the CT scan and the treatment with dexamethasone. Advised to monitor symptoms and follow up with primary care if symptoms recur.
FOLLOW-UP INSTRUCTIONS
Advised to contact primary care provider for follow-up if symptoms persist or worsen.
MEDICATION RECONCILIATION
Dexamethasone administered.
MEDICAL DECISION MAKING
-Complexity of Data Reviewed: Chronic conditions affecting care include history of hypertension, supraventricular tachycardia (SVT), gastroesophageal reflux disease (GERD), and a history of gout. Differential diagnosis considered included acute
sinusitis, upper respiratory tract infection, influenza, non-allergic rhinitis, among others.
-Data:
Category 1
My independent interpretation of the CT scan revealed no acute sinus issues.
-Risk: Consideration of Admission/Observation: Escalation of care including admission/observation was considered given the complexity and risk of the patients presenting complaint, exam findings, and his underlying comorbidities. However, ultimately
I feel the patient is safe for outpatient management with close follow up. Reasoning: Work-up reassuring, does not reveal any acute life/organ-threatening processes, patients symptoms well controlled upon reevaluation, reexamination is reassuring,
vitals are stable, patient agreeable with discharge, reliable for follow-up.
DIAGNOSIS
Sinus headache, resolved (ICD-10: R51.9)
Past History
Past History
ED Past Medical History: Arrthythmia, HTN, Psychiatric (ADHD, asked Buerger's, bipolar, PTSD) and Other (migraines, ADHD)
ED Past Surgical History: None
Social History
Tobacco: Non-smoker
Alcohol: Occasional
Drug: None
Personal: Other (Noncontributory)
Living: with family
Employment: Not employed
Family History
Family History: Other (Noncontributory)
Phy Exam
Physical Exam
Physical Exam:
.
Course
Orders/Labs/Results
Orders:
Orders
04/08/25 02:24
0.9% Sodium Chloride 1000 ml [Nss] 1,000 ml IV BOLUS
04/08/25 02:25
CT Head W/o Iv Contrast Urgent
Comment:
Reason For Exam: headache, congestion
04/08/25 02:58
COVID-19 Antigen Urgent
Source: Nasal Swab
Complete Blood Count/With Diff Urgent
Comprehensive Metabolic Panel Urgent
Manual Differential Urgent
Influenza A+B Rapid Molecular Urgent
[place] Source: Nasal Swab
Specimen Description:
04/08/25 04:28
Urinalysis Reflex To Culture Urgent
Date Specimen was Collected: 04/08/25
Time Specimen was Collected: 04:26
Urine Microscopic Reflex Cult Urgent
Urine Culture Urgent
[place] Source: U
Specimen Description:
Date Specimen was Collected: 04/08/25
Time Specimen was Collected: 04:26
04/08/25 04:58
Dexamethasone Sod Phosphate [Decadron] 10 mg IV NOW STA
Abnormal Lab Results
04/08/25 04/08/25
02:58 04:28
WBC 4.4 L 10^3/uL
(4.8-10.8)
Plt Count 100 L 10^3/uL
(130-400)
MPV 11.1 H fL
(7.4-10.4)
Absolute Monos (auto) 0.9 H 10^3/uL
(0.1-0.6)
Immature Gran % 0.9 H %
(0-0.5)
Neutrophils % 30.8 L %
(42.2-75.2)
Monocytes % 20.1 H %
(1.7-9.3)
Segmented Neutrophils 20 L %
(42-75)
Band Neutrophils 13 H %
(0-3)
Monocytes (Manual) 25 H %
(2-9)
AST 65 H U/L
(17-59)
ALT 65 H U/L
(0-50)
Urine Ketones 3+ A
(Negative)
Ur Occult Blood Reflex 1+ A
(Negative)
Urine RBC 3-6 A /HPF
(0-2)
Urine Bacteria (Reflex) Many A
(Negative)
Urine Albumin (Reflex) 2+ A
(Neg - Trace)
04/08/25 02:58
04/08/25 02:58
Vital Signs
Initial and Last Documented VS:
Initial Vital Signs
Temp Pulse Resp BP Pulse Ox
98.5 F 88 20 134/95 97
04/08/25 00:04 04/08/25 00:04 04/08/25 00:04 04/08/25 00:04 04/08/25 00:04
Last Documented Vital Signs
Temp Pulse Resp BP Pulse Ox
98.4 F 83 16 122/85 95
04/08/25 02:16 04/08/25 02:16 04/08/25 02:16 04/08/25 02:16 04/08/25 04:54
*Pulse Oximetry
SaO2: 95
Oxygen Mode of Delivery: Room air
Patient hypoxic: no
*Critical Care Note
Total Time (30-74mins, 75-104mins- exclusive of procedures): Not Applicable
comment:
Note:
CHIEF COMPLAINT(S)
Sinus pressure, chills, night sweats, and cough.
HISTORY OF PRESENT ILLNESS
The patient is a 34-year-old male who presented with symptoms that began on or about . He describes experiencing new onset sinus pressure and chills, stating, 'the whole air around me just felt chilly,' though others did not feel the same.
On night into Wednesday morning, he awoke around 2 a.m. drenched in sweat, soaking his pajamas and T-shirt. He has not documented any fevers but has experienced these chills and sinus pains. The patient started taking acetaminophen on
to see if it could alleviate his symptoms, which included difficulties sleeping due to night sweats. On Wednesday into Wednesday, he developed a cough. His symptoms have persisted for more than four days. The patient reported not measuring his
temperature. He feels better after sweating but expressed concern about the ongoing symptoms.
PAST MEDICAL AND SURIGICAL HISTORY
The patient has a medical history of hypertension, supraventricular tachycardia (SVT), gastroesophageal reflux disease (GERD), and a history of gout. He takes medications for these conditions.
IMMUNIZATION HISTORY
The patient received a flu shot and a COVID-19 vaccination in January of this year.
SOCIAL HISTORY
The patient does not smoke but consumes alcohol. He reported having three alcoholic drinks in [place] from Wednesday through Wednesday. He does not work around chemicals or other known exposures.
PHYSICAL EXAM
General: Alert, no acute distress.
Skin: Warm, dry.
Head: Normocephalic, atraumatic.
Neck: Supple, trachea midline.
Eye Ears, nose, mouth and throat: Oral mucosa moist.
Cardiovascular: Normal peripheral perfusion, No edema.
Respiratory: Lung sounds described as perfect during auscultation.
Gastrointestinal: Abdomen nondistended
Back: Normal range of motion, Normal alignment.
Musculoskeletal: Normal ROM, normal strength.
Neurological: Alert and oriented to person, place, time, and situation, No focal neurological deficit observed.
Psychiatric: Cooperative, appropriate mood & affect.
PLAN
1. Perform a computed tomography (CT) scan of the head to evaluate for sinus issues.
2. Conduct blood work to assess the patients overall condition.
3. Administer intravenous fluids due to potential dehydration from night sweats.
4. Obtain a urine sample for analysis.
5. Consider treatment for sinusitis based on symptoms and diagnostic findings.
DIFFERENTIAL DIAGNOSIS
The Differential Diagnosis includes, in no particular order and is not limited to:
1. Acute sinusitis
2. Upper respiratory tract infection
3. Influenza
4. COVID-19
5. Non-allergic rhinitis
6. Allergic rhinitis
7. Viral pharyngitis
8. Bacterial sinusitis
9. Dehydration
10. Anxiety-induced hyperhidrosis
Disposition:
SUMMARY OF ENCOUNTER
The patient, a 34-year-old male, presented with sinus pressure and headache. A computed tomography (CT) scan was conducted to evaluate sinus issues but returned negative for any acute abnormalities. His symptoms resolved during the emergency
department visit. Dexamethasone (Decadron) was administered to address inflammation. Patient agreed with the management plan.
DISPOSITION
Discharge
ASSESSMENT
Resolved sinus pressure and headache. Negative CT scan for acute sinus issues.
EMERGENCY TREATMENTS ADMINISTERED
Dexamethasone administered.
PLAN
Discharge patient in improved condition.
INDEPENDENT REVIEW OF LABS AND INTERPRETATION OF TESTS
My independent interpretation of the CT scan is negative for acute sinus concerns.
PATIENT EDUCATION AND COUNSELING
Patient was informed about the lack of acute findings on the CT scan and the treatment with dexamethasone. Advised to monitor symptoms and follow up with primary care if symptoms recur.
FOLLOW-UP INSTRUCTIONS
Advised to contact primary care provider for follow-up if symptoms persist or worsen.
MEDICATION RECONCILIATION
Dexamethasone administered.
MEDICAL DECISION MAKING
-Complexity of Data Reviewed: Chronic conditions affecting care include history of hypertension, supraventricular tachycardia (SVT), gastroesophageal reflux disease (GERD), and a history of gout. Differential diagnosis considered included acute
sinusitis, upper respiratory tract infection, influenza, non-allergic rhinitis, among others.
-Data:
Category 1
My independent interpretation of the CT scan revealed no acute sinus issues.
-Risk: Consideration of Admission/Observation: Escalation of care including admission/observation was considered given the complexity and risk of the patients presenting complaint, exam findings, and his underlying comorbidities. However, ultimately
I feel the patient is safe for outpatient management with close follow up. Reasoning: Work-up reassuring, does not reveal any acute life/organ-threatening processes, patients symptoms well controlled upon reevaluation, reexamination is reassuring,
vitals are stable, patient agreeable with discharge, reliable for follow-up.
DIAGNOSIS
Sinus headache, resolved (ICD-10: R51.9)
Update Note
Update Note:
NAME: DOLORES PASCAL
DATE OF EXAM: 04/08/2025
Patient No: [id number]
Physician: IVAN
Date of : 1990
Past Medical History (entered by Technologist):
Reason For Exam (entered by Technologist):
Other Notes (entered by Technologist): Patient reports he started with a headache (eye and sinus area)on wednesday.
Prior sent
Additional Information (per Vision Radiologist):
NONCONTRAST HEAD CT
IMPRESSION
Compared to 12/21/2023
No evidence of acute intracranial abnormality. No hemorrhage or mass. Cerebellar tonsils are minimally low lying, a nonspecific finding probably a variant of normal, but can be seen with intracranial hypotension and intracranial hypertension but
no other secondary findings, no criteria for Chiari I malformation.
Ventricles, sulci, Balderrama-White matter, and bones are otherwise unremarkable. Sinuses are unremarkable.
Case finalized on 04/08/25 03:41 EDT
Vaughn Wan M.D.
ED Attending Note
-
Portions of this chart may have been created with voice recognition software.� Occasional wrong word or��sound alike� substitutions may have occurred due to the inherent limitations of voice recognition software.
Discharge Plan
Departure
Patient Disposition: Home (Routine Discharge)
Date of Disposition: 04/08/25
Time of Disposition: 05:10
Patient with high blood pressure during this ER visit?: Yes
Discharge Problem:
Headache
Instructions: Headache, Adult (DC), BLOOD PRESSURE
Prescriptions:
No Action
divalproex [Depakote] 500 mg Tablet,Delayed Release (Dr/Ec)
1,000 mg PO QHS
allopurinol 300 mg Tablet
300 mg PO DAILY
propranolol 20 mg Tablet
20 mg PO BID
cholecalciferol (vitamin D3) [Vitamin D3] 25 mcg (1,000 unit) Capsule
25 mcg PO BID
aripiprazole [Abilify] 20 mg Tablet
25 mg PO HS
gabapentin 100 mg Tablet
200 mg PO TID
divalproex [Depakote] 250 mg tablet,delayed release (DR/EC)
750 mg PO QDAY
Rx Instructions:
morning
Referrals:
DONIS NUNEZ PA [Family Provider, Family Practice]
Activity Restrictions/Additional Instructions:
Thank You for choosing [facility].
It was a pleasure meeting you and taking part in your care. We hope for your continued healing and wellness.
Please read discharge instructions in their entirety. However, they are for general education and may not describe your exact diagnosis at discharge. Information on your ER visit and medical conditions were discussed with you along with appropriate
follow up information...
If indicated, please take your medications as instructed and indicated on discharge paperwork.
Please schedule a follow up appointment as directed. Call to schedule an appointment
Please return to the emergency department with ANY change in, persisting, or worsening of symptoms. If any of your symptoms do not improve, or persist, or become more severe within 6-12 hours, please return to the emergency department for further
care.
Please return to the emergency department if you develop a headache, neck pain/stiffness, fever greater than 100.4F, chest pain, shortness of breath, persistent nausea, vomiting, slurred speech, difficulty walking, numbness/tingling, weakness, signs
of infection or any other symptoms that are worrisome to you.
If you have any questions or concerns please do not hesitate to call the Hospital at .
Interventions
Interventions:
*Risk Screen - Suicide Last Done: 04/08/25 00:04
*General Assessment Last Done: 04/08/25 00:04
*Neglect/Abuse Screening Last Done: 04/08/25 00:04
*ED- Fall Risk Assessment Last Done: 04/08/25 00:04
*ED COVID-19 Vaccine History Last Done: 04/08/25 00:04
*ED Influenza Vaccine History Last Done: 04/08/25 00:04
ED- Neurological Assessment Last Done: 04/08/25 02:22
Discharge Date and Time
Print Language: ROMANIAN
[2025-04-08 04:58] LABS: Normal RBC Morphology Yes; Platelets Checked Yes; Total Cells Counted 100; Toxic Granulation 1+; Vacuolated Segs 1+
[2025-04-08 05:01] LABS: Absolute Neutrophils -Man Diff 1.4 10^3/uL (1.4-6.5)
[2025-04-08] MEDS: DECADRON 10 MG IV (05:05)
[2025-04-08 05:39] VITALS: BP 123/79
== END 2025-04-08 05:48 | disposition home or self-care (01) ==
LOC: EMR 23:49
PROVIDERS: EMERGENCY PHYSICIAN Student in an Organized Health Care Education/Training Program; FAMILY PHYSICIAN Physician Assistant
DX: R51.9 Headache, unspecified (principal); R05.9 Cough, unspecified; J01.90 Acute sinusitis, unspecified; Z11.52 Encounter for screening for COVID-19; I10 Essential (primary) hypertension; G93.5 Compression of brain; I47.10 Supraventricular tachycardia, unspecified; K21.9 Gastro-esophageal reflux disease without esophagitis; M10.9 Gout, unspecified; F90.9 Attention-deficit hyperactivity disorder, unspecified type; F43.10 Post-traumatic stress disorder, unspecified; F31.9 Bipolar disorder, unspecified; Z88.8 Allergy status to other drugs, medicaments and biological substances; Z91.048 Other nonmedicinal substance allergy status
CPT/HCPCS: 99284; 96374; 96361; 70450; 80053; 81003; 81015; 85025; 87086; 87502; 87811